=== PATIENT | female | born 1985 | race Caucasian/White ===

== ENCOUNTER → 2019-06-25 | Outpatient (CLI) | payer OTHER ==
--- NOTE | 2019-06-25 15:43 | RAD ---
EXAM: Thyroid sonogram. HISTORY: Thyromegaly. TECHNIQUE: Sonographic imaging of the thyroid was performed. COMPARISON: None. FINDINGS: The right there are lobe measures 3.8 x 1.4 x 1.5 cm. The left thyroid lobe measures 4.7 x 1.4 x 1.3 cm. There is a heterogeneous hypoechoic nodule within the inferior right thyroid lobe measuring 4 mm in maximum dimension. No additional thyroid lesion is seen. IMPRESSION: 1. Normal thyroid size. 2. 4 mm nodule within the right thyroid lobe. Electronically signed by: Maureen Duff MD (06/25/2019 3:40 PM) [place] [id number]
== END | disposition home or self-care (01) ==
LOC: US 14:53
PROVIDERS: ATTEND Obstetrics & Gynecology
DX: E04.1 Nontoxic single thyroid nodule (principal)
CPT/HCPCS: 76536